=== PATIENT | female | born 1995 | race Caucasian/White ===

== ENCOUNTER 2016-10-21 22:48 | Emergency (ER) | payer OTHER ==
[~2016-10-21 22:48] MED LIST: BACTRIM DS TABL1 TA1 PO
== END 2016-10-21 23:30 | disposition home or self-care (01) ==
LOC: CFTX 22:48
DX: L03.211 Cellulitis of face (principal); F42.4 Excoriation (skin-picking) disorder; F19.10 Other psychoactive substance abuse, uncomplicated; F17.210 Nicotine dependence, cigarettes, uncomplicated
CPT/HCPCS: 99282

== ENCOUNTER 2017-02-11 19:11 | Emergency (ER) | payer OTHER ==
[2017-02-11 21:09] LABS: URINE SOURCE CLEAN CATCH
[2017-02-11 21:28] LABS: URINE APPEARANCE CLOUDY; URINE BLOOD NEG (NEG); URINE COLOR DK YELLOW; URINE GLUCOSE NEG (NEG); URINE KETONE TRACE (NEG); URINE LEUKOCYTE ESTERASE 2+ (NEG); URINE NITRATE NEG (NEG); URINE PH 5.5 (5-8); URINE PROTEIN NEG (NEG); URINE SPECIFIC GRAVITY 1.025 (1.003-1.035)
[2017-02-11 21:31] LABS: CULTURE INDICATED? YES; URINE BACTERIA AUWI 4+ (NEGATIVE); URINE SQUAMOUS EPITHELIAL CELL MOD /[HPF]; UWBCS1 AUWI 50-100 (0-5)
[2017-02-11 21:51] LABS: URINE BILIRUBIN NEG (NEG)
== END 2017-02-11 22:30 | disposition home or self-care (01) ==
LOC: CFTX 19:11 → CED 19:11 → CFTX 20:55 → CED 20:55 → CFTX 22:30
PROVIDERS: Nurse Practitioner Family
DX: N39.0 Urinary tract infection, site not specified (principal); F17.210 Nicotine dependence, cigarettes, uncomplicated
CPT/HCPCS: 81003; 84703; 87086; 87088; 87186; 99283

== ENCOUNTER 2017-02-20 20:37 | Emergency (ER) | payer OTHER | END 2017-02-20 22:00 | disposition home or self-care (01) | LOC: CED 20:37 → CFTX 21:34 → CED 21:34 | DX: F11.129 Opioid abuse with intoxication, unspecified (principal); F17.200 Nicotine dependence, unspecified, uncomplicated | CPT/HCPCS: 99284 ==

== ENCOUNTER 2017-03-12 00:45 | Emergency (ER) | payer OTHER ==
[~2017-03-12] VITALS: Ht 162.6 cm; Wt 59.0 kg
--- NOTE | ~2017-03-12 | CT96 ---
[facility] A Service of [facility] RADIOLOGY TEXT RESULTS PATIENT: IRAIS BONILLA LOCATION: SED : 96 UNIT #: [id number] AGE: [address]: Ramo Padron MD SEX: F ORDER DR: [id number] [address] [address] [id number] E MR#: [id number] Acc #: [id number] NAME: IRAIS BONILLA : 1995 SEX: F STUDY DATE/TIME: 03/12/2017 3:51 UNIT: SED ROOM: STUDY DESCRIPTION: CT Lumbar Spine W Cont Attending Physician: Ramo Padron M.D. Ordering Physician: Ramo Padron M.D. Primary Care Physician: Primary Care Physician No MEDICAL IMAGING REPORT This report is preliminary unless electronic signature is present. EXAM Lumbar spine with contrast DATE: 03/12/2017 HISTORY 22-year-old female with right lower back pain with urination for 2 days. History of IV drug abuse. Bumps and palpable abnormalities on the back. COMPARISON None. PROCEDURE 2 mm axial images through the lumbar spine after IV contrast administration. Sagittal And coronal reformed images were obtained. FINDINGS The technologist placed a marker over the right lower back at the site of patient's area of palpable complaint. At this location, no soft tissue mass or abscess or retained radiopaque foreign body is identified. Imaged paraspinal soft tissues are within normal limits. No lumbar spine fracture or subluxation. Disc height is well preserved. No evidence of diskitis - osteomyelitis. No epidural fluid collection or abscess is identified. Very mild broad-based disc bulge at L4-5 and mild canal stenosis, no significant neural foraminal stenosis. IMPRESSION 1. No acute lumbar spine findings. Palpable abnormality of the [facility] A Service [facility] RADIOLOGY TEXT RESULTS PATIENT: IRAIS BONILLA LOCATION: SED : 96 UNIT #: [id number] AGE: [address]: Ramo Padron MD SEX: F ORDER DR: patient's lower was marked by the technologist, and no subcutaneous or cutaneous abnormality is seen at this location on CT. 2. No CT evidence of diskitis, osteomyelitis no epidural abscess. There is a mild disc bulge at L4-5 resulting in mild canal stenosis. Dictated by... Cynthia Royal M.D. THIS IS AN ELECTRONICALLY VERIFIED REPORT Cynthia Royal M.D. at 03/12/2017 9:49 PM DAVID/charissa TD: 03/12/2017 05:07 JOB #: [id number] MEDICAL IMAGING REPORT Page 1 of 1
[2017-03-12] MEDS ORDERED: NO MEDICATIONS (00:56)
[2017-03-12 03:00] LABS: URINE SOURCE CLEAN CATCH
[2017-03-12 03:04] LABS: MICRO INDICATED? YES; URINE APPEARANCE HAZY; URINE BLOOD 1+ (NEG); URINE COLOR YELLOW; URINE GLUCOSE NEG (NORM); URINE KETONE TRACE (NEG); URINE LEUKOCYTE ESTERASE 2+ (NEG); URINE NITRATE POS (NEG); URINE PH 5.5 (5-8); URINE PROTEIN 1+ (NEG)
[2017-03-12 03:06] LABS: URINE BILIRUBIN NEG (NEG)
[2017-03-12 03:11] LABS: URINE BACTERIA 3+ (NEG); URINE MUCUS PRESENT; URINE SQUAMOUS EPITHELIAL CELL FEW /[HPF]; URINE WBC 25-50 /[HPF] (0-5)
[2017-03-12 03:12] LABS: INR 1.7; PROTHROMBIN TIME (PATIENT) 18.8 SECONDS (9.5-12.4)
[2017-03-12 03:13] LABS: AMPHETAMINE POS (NEG); BARBITURATES NEG (NEG); BENZODIAZEPINES NEG (NEG); COCAINE POS (NEG); MARIJUANA POS (NEG); OPIATES POS (NEG); TRICYCLIC ANTIDEPRESSANTS NEG (NEG); U METHADONE NEG (NEG)
[2017-03-12 03:19] LABS: PARTIAL THROMBOPLASTIN TIME 20.6 SECONDS (25.6-38.1)
[2017-03-12 03:33] LABS: ALBUMIN SERUM 4.5 g/dL (3.5-5.0); ALKALINE PHOSPHATASE 63 U/L (32-92); ALT (SGPT) 46 U/L (10-40); AST (SGOT) 51 U/L (10-42); BILIRUBIN,TOTAL 1.1 mg/dL (0.2-2.0); BLOOD UREA NITROGEN 8 mg/dL (9-23); CALCIUM SERUM 9.2 mg/dL (8.4-10.2); CARBON DIOXIDE 27 mmol/L (22-31); CHLORIDE 96 mmol/L (100-111); CREATININE SERUM 0.5 mg/dL (0.6-1.4); GLOM FILT RATE Estimated 138.4 mL/min (>60); GLUCOSE FASTING 98 mg/dL (70-110); SODIUM 135 mmol/L (135-145)
[2017-03-12 03:34] LABS: ALCOHOL BLOOD <5 mg/dL (0)
[2017-03-12 04:21] LABS: BASOPHIL# 0.1 X10e3 (0-0.3); BASOPHIL% 0.7 % (0-2.5); EOSINOPHIL# 0.4 X10e3 (0-0.7); EOSINOPHIL% 4.5 % (0.0-7.0); HEMATOCRIT 39.1 % (35.0-45.0); HEMOGLOBIN 13.5 gm/dL (12.0-16.0); LYMPHOCYTE# 1.1 X10e3 (1.0-3.5); LYMPHOCYTE% 14.3 % (17.0-45.0); MEAN CELL VOLUME 82.2 FL (83-96); MEAN CORPUSCULAR HEMOGLOBIN 28.4 PG (28-34); MEAN CORPUSCULAR HGB CONC 34.5 g/dL (30-36); MONOCYTE# 0.9 X10e3 (0-1.0); MONOCYTE% 11.3 % (3.0-12.0); NEUTROPHIL# 5.5 X10e3 (1.5-7.1); NEUTROPHIL% 69.2 % (40-75); PLATELET COUNT 226 X10e3 (140-420); RED BLOOD COUNT 4.76 X10e (3.90-5.30); RED CELL DISTRIBUTION WIDTH 12.2 % (11.0-15.5)
[2017-03-12 04:23] LABS: DIFF IND NO
== END 2017-03-12 04:46 | disposition home or self-care (01) ==
LOC: SED 00:45
PROVIDERS: Emergency Medicine
DX: N39.0 Urinary tract infection, site not specified (principal); F19.10 Other psychoactive substance abuse, uncomplicated; B19.20 Unspecified viral hepatitis C without hepatic coma; Z88.2 Allergy status to sulfonamides; Z88.8 Allergy status to other drugs, medicaments and biological substances
CPT/HCPCS: 36415; 51701; 72132; 80053; 80307; 81003; 83605; 84703; 85025; 85610; 85730; 87086; 87088; 87186; 96361; 96374; 99284; G0480; J0696; Q9967

== ENCOUNTER 2017-03-16 02:56 | Emergency (ER) | payer OTHER ==
[~2017-03-16] VITALS: Ht 162.6 cm; Wt 59.0 kg
--- NOTE | ~2017-03-16 | CT4 ---
[facility] A Service of [facility] RADIOLOGY TEXT RESULTS PATIENT: IRAIS BONILLA LOCATION: LUIS : 96 UNIT #: [id number] AGE: [address]: Rishabh Friend MD SEX: F ORDER DR: [id number] [facility] [address] [place], [place] [address] [id number] E MR#: [id number] Acc #: [id number] NAME: IRAIS BONILLA : 1995 SEX: F STUDY DATE/TIME: 03/16/2017 4:25 UNIT: LUIS ROOM: STUDY DESCRIPTION: CT Abd and Pelv Wo Cont Attending Physician: Rishabh Friend Ordering Physician: Rishabh Friend, [id number] Primary Care Physician: Primary Care Physician No MEDICAL IMAGING REPORT This report is preliminary unless electronic signature is present EXAM CT abdomen and pelvis, noncontrast, kidney stone protocol, 03/16/2017 HISTORY 22-year-old female in the ED complaining of 8-day history of right flank pain. Recent diagnosis of urinary tract infection. History of Hepatitis C. TECHNIQUE CT examination of the abdomen and pelvis without oral or IV contrast using kidney stone protocol. This CT exam was performed with one or more of the following radiation dose reduction techniques: automatic exposure control, adjustment of mA and/or kV according to patient size, and iterative reconstruction. FINDINGS ABDOMEN FINDINGS: Both kidneys, both ureters and urinary bladder are normal in noncontrast CT appearance. No visible nephrolithiasis or evidence of urinary obstruction. Liver, pancreas and spleen are normal in size and appearance without contrast. No gallbladder distension or bile duct dilatation. Small bowel and colon are normal in caliber and appearance, as imaged. Normal appendix. Small periumbilical hernia containing abdominal fat. PELVIS FINDINGS: Uterus, ovaries, urinary bladder and rectum are within normal limits. IUD within the endometrial cavity. [facility] A Service of [facility] RADIOLOGY TEXT RESULTS PATIENT: IRAIS BONILLA LOCATION: LUIS : 96 UNIT #: [id number] AGE: [address]: Rishabh Friend MD SEX: F ORDER DR: Limited lung base images show no active disease in the lower chest. IMPRESSION Negative noncontrast CT examination of the abdomen and pelvis. Dictated by... Shar Slater M.D. THIS IS AN ELECTRONICALLY VERIFIED REPORT Shar Slater M.D. at 03/16/2017 9:54 PM RAMILA/charissa TD: 03/16/2017 05:09 JOB #: [id number] MEDICAL IMAGING REPORT Page 1 of 1 COPY
[~2017-03-16 02:56] MED LIST changes: +NO MEDICATIONS
[2017-03-16 03:50] LABS: BASOPHIL# 0.1 X10e3 (0-0.3); BASOPHIL% 0.7 % (0-2.5); EOSINOPHIL# 1.1 X10e3 (0-0.7); EOSINOPHIL% 9.6 % (0.0-7.0); HEMATOCRIT 36.6 % (35.0-45.0); HEMOGLOBIN 12.4 gm/dL (12.0-16.0); LYMPHOCYTE# 2.4 X10e3 (1.0-3.5); LYMPHOCYTE% 20.9 % (17.0-45.0); MEAN CELL VOLUME 83.2 FL (83-96); MEAN CORPUSCULAR HEMOGLOBIN 28.2 PG (28-34); MEAN CORPUSCULAR HGB CONC 33.9 g/dL (30-36); MEAN PLATELET VOLUME 6.8 FL (6.5-11.5); MONOCYTE# 1.3 X10e3 (0-1.0); MONOCYTE% 11.3 % (3.0-12.0); NEUTROPHIL# 6.6 X10e3 (1.5-7.1); NEUTROPHIL% 57.5 % (40-75); PLATELET COUNT 334 X10e3 (140-420); RED CELL DISTRIBUTION WIDTH 12.4 % (11.0-15.5); WHITE BLOOD COUNT 11.5 X10e3 (4.0-10.5)
[2017-03-16 03:52] LABS: DIFF IND NO
[2017-03-16 04:14] LABS: URINE SOURCE CLEAN CATCH
[2017-03-16 04:19] LABS: URINE APPEARANCE CLOUDY; URINE BILIRUBIN NEG (NEG); URINE BLOOD NEG (NEG); URINE COLOR DK YELLOW; URINE GLUCOSE 100 MG/DL (NEG); URINE KETONE NEG (NEG); URINE LEUKOCYTE ESTERASE 1+ (NEG); URINE NITRATE NEG (NEG); URINE PH 6.5 (5-8); URINE PROTEIN NEG (NEG); URINE SPECIFIC GRAVITY 1.023 (1.003-1.035)
[2017-03-16 04:21] LABS: CULTURE INDICATED? YES; URBCS1 AUWI 0-2 /[HPF] (0-2); URINE BACTERIA AUWI 4+ (NEGATIVE); URINE SQUAMOUS EPITHELIAL CELL MANY /[HPF]
[2017-03-16 04:27] LABS: BUN/CREATININE RATIO 17.5; CALCIUM SERUM 8.4 mg/dL (8.4-10.2); CREATININE SERUM 0.4 mg/dL (0.6-1.4); GLOM FILT RATE Estimated 148.9 mL/min (>60); POTASSIUM 3.4 mmol/L (3.5-5.1)
== END 2017-03-16 05:30 | disposition home or self-care (01) ==
LOC: CED 02:56
PROVIDERS: Emergency Medicine
DX: R10.9 Unspecified abdominal pain (principal); K75.9 Inflammatory liver disease, unspecified; F17.210 Nicotine dependence, cigarettes, uncomplicated; Z88.8 Allergy status to other drugs, medicaments and biological substances
CPT/HCPCS: 36415; 74176; 80048; 81003; 84703; 85025; 87086; 96361; 96374; 96375; 99284; J1170; J2270; J2405